=== PATIENT | female | born 1970 | race Caucasian/White ===

== ENCOUNTER 2016-09-19 08:48 | Outpatient (CLI) | payer OTHER | END 2016-09-19 08:49 | disposition home or self-care (01) | DX: Z00.00 Encounter for general adult medical examination without abnormal findings (principal) ==

== ENCOUNTER 2016-09-23 10:30 | Outpatient (CLI) | payer OTHER | END 2016-09-23 10:31 | disposition home or self-care (01) | DX: N76.0 Acute vaginitis (principal) ==

== ENCOUNTER 2016-09-23 10:45 | Outpatient (CLI) | payer OTHER | END 2016-09-23 10:46 | disposition home or self-care (01) | DX: Z12.31 Encounter for screening mammogram for malignant neoplasm of breast (principal) ==

== ENCOUNTER 2017-12-29 11:28 | Outpatient (CLI) | payer OTHER ==
--- NOTE | 2018-01-01 13:53 | Mammography Report ---
DIGITAL SCREENING MAMMOGRAM: 12/29/2017 CLINICAL INDICATION: A 47-year-old nulliparous patient for screening. COMPARISON: 08/2016, 04/2015, 11/2013, 09/2012, 08/2011, 08/2010. TECHNIQUE: Routine CC and MLO projections were obtained of the breasts. FINDINGS: The breasts again demonstrate heterogeneously dense fibroglandular parenchyma bilaterally. A few punctate, typically benign calcifications are present. No suspicious masses, clustered microcalcifications, or regions of architectural distortion are identified. IMPRESSION: BENIGN FINDINGS. RECOMMENDATION: Routine annual screening unless otherwise clinically indicated. BI-RADS CATEGORY 2 - BENIGN FINDINGS. STANDARD QUALIFYING STATEMENTS: 1. This examination was reviewed with the aid of Computer-Aided Detection (CAD). 2. A negative or benign imaging report should not delay biopsy if clinically suspicious findings are present. Consider surgical consultation if warranted. More than 5% of cancers are not identified by imaging. 3. Dense breasts may obscure an underlying neoplasm. TD: 01/01/2018 13:52
== END 2017-12-29 11:29 | disposition home or self-care (01) ==
LOC: DI.N 11:28
PROVIDERS: ATTEND Physician Assistant Medical
DX: Z12.31 Encounter for screening mammogram for malignant neoplasm of breast (principal)
CPT/HCPCS: 77067

== ENCOUNTER 2019-03-06 08:31 | Outpatient (CLI) | payer OTHER ==
[2019-03-06 10:15] LABS: BASOPHILS % (AUTO) 0.5 %; EOSINOPHILS # (AUTO) 0.1 10^3/uL (0.0-0.7); EOSINOPHILS % (AUTO) 2.5 %; HGB - HEMOGLOBIN 13.5 g/dL (12.0-16.0); LYMPHOCYTES # (AUTO) 1.2 10^3/uL (1.5-3.5); LYMPHOCYTES % (AUTO) 28.6 %; MEAN CORPUSCULAR HEMOGLOBIN 31.5 pg (27.0-31.0); MEAN CORPUSCULAR HGB CONC 31.8 g/dL (32.0-36.0); MEAN CORPUSCULAR VOLUME 99.1 fL (81.0-99.0); MEAN PLATELET VOLUME 11.2 fL (7.9-10.8); MONOCYTES # (AUTO) 0.5 10^3/uL (0.0-1.0); MONOCYTES % (AUTO) 10.8 %; NEUTROPHILS # (AUTO) 2.5 10^3/uL (1.5-6.6); NEUTROPHILS % (AUTO) 57.4 %; PLT - PLATELET COUNT 142 10^3/uL (130-450); RED BLOOD COUNT 4.28 10^6/uL (4.20-5.40); RED CELL DISTRIBUTION WIDTH 12.3 % (12.0-15.0); WHITE BLOOD COUNT 4.3 x10^3/uL (4.8-10.8)
[2019-03-06 11:18] LABS: ALBUMIN 4.6 g/dL (3.2-5.5); ALBUMIN/GLOBULIN RATIO 1.3 (1.0-2.2); ALKALINE PHOSPHATASE 45 IU/L (42-121); ALT ALANINE AMINOTRANSFERASE 28 IU/L (10-60); AST ASPARTATE AMINOTRANSFERASE 30 IU/L (10-42); BILIRUBIN,TOTAL 1.4 mg/dL (0.2-1.0); BUN - BLOOD UREA NITROGEN 17 mg/dL (6-20); CALCIUM 9.5 mg/dL (8.5-10.3); CARBON DIOXIDE - CO2 28 mmol/L (21-32); CHLORIDE 100 mmol/L (101-111); CHOL/HDL RATIO 2.5 (<4.4); CHOLESTEROL 201 mg/dL; CREATININE 0.6 mg/dL (0.4-1.0); GFR - MDRD 106 (>89); GLUCOSE 91 mg/dL (70-100); HDL CHOLESTEROL 80 mg/dL; SODIUM 139 mmol/L (135-145); TOTAL PROTEIN 8.2 g/dL (6.7-8.2)
== END 2019-03-06 08:32 | disposition home or self-care (01) ==
LOC: LAB.S 08:31
PROVIDERS: ATTEND Physician Assistant Medical
DX: Z00.00 Encounter for general adult medical examination without abnormal findings (principal)
CPT/HCPCS: 36415; 80053; 80061; 83721; 84443; 85025

== ENCOUNTER 2019-03-22 14:41 | Outpatient (CLI) | payer OTHER ==
--- NOTE | 2019-03-25 08:12 | Mammography Report ---
Reason: SCREENING MAMMO Procedure Date: 03/22/2019 Accession Number: [id number] / [id number] Procedure: JOE - Screening Mammo w/Hasmukh CPT Code: FULL RESULT: EXAM: Screening Mammo w/Hasmukh DATE: 03/22/2019 3:31 PM CLINICAL HISTORY: Screening encounter. History of nulliparity. TECHNIQUE: (B) - Bilateral CC and MLO views were obtained. COMPARISON: 12/29/2017 through 11/26/2013. PARENCHYMAL PATTERN: (A) - The breast(s) demonstrate(s) scattered fibroglandular densities. FINDINGS: There are no suspicious masses, calcifications, or areas of distortion. IMPRESSION: Negative examination. BI-RADS category 1. RECOMMENDATION: (ANNUAL) - Recommend routine annual screening mammography. BI-RADS CATEGORY: (1) - Negative. STANDARD QUALIFYING STATEMENTS: 1. This examination was not reviewed with the aid of Computer-Aided Detection (CAD). 2. A negative or benign imaging report should not preclude biopsy if clinically suspicious findings are present. 3. Dense breasts may obscure an underlying neoplasm. 4. This examination was reviewed with the aid of 3D breast imaging (tomosynthesis).
== END 2019-03-22 14:42 | disposition home or self-care (01) ==
LOC: DI 14:41
DX: Z12.31 Encounter for screening mammogram for malignant neoplasm of breast (principal)
CPT/HCPCS: 77063; 77067

== ENCOUNTER 2020-11-27 08:00 | Outpatient (CLI) | payer OTHER ==
[2020-11-27 19:05] LABS: ALBUMIN 4.9 g/dL (3.2-5.5); ALBUMIN/GLOBULIN RATIO 1.5 (1.0-2.2); ALKALINE PHOSPHATASE 36 IU/L (42-121); ALT ALANINE AMINOTRANSFERASE 25 IU/L (10-60); AST ASPARTATE AMINOTRANSFERASE 26 IU/L (10-42); BILIRUBIN,TOTAL 1.5 mg/dL (0.2-1.0); BUN - BLOOD UREA NITROGEN 18 mg/dL (6-20); CALCIUM 9.9 mg/dL (8.5-10.3); CARBON DIOXIDE - CO2 29 mmol/L (21-32); CHLORIDE 101 mmol/L (101-111); CHOL/HDL RATIO 2.2 (<4.4); CHOLESTEROL 228 mg/dL; CREATININE 0.8 mg/dL (0.4-1.0); GFR - MDRD 75 (>89); GLUCOSE 88 mg/dL (70-100); HDL CHOLESTEROL 102 mg/dL; LDL CHOLESTEROL,CALCULATED 113 mg/dL; LDL/HDL RATIO 1.1 (<4.4); SODIUM 139 mmol/L (135-145); TOTAL PROTEIN 8.2 g/dL (6.7-8.2); TRIGLYCERIDES 63 mg/dL; VLDL CHOLESTEROL 13 mg/dL
[2020-11-27 19:16] LABS: THYROID STIMULATING HORMONE 1.75 uIU/mL (0.34-5.60)
[2020-11-27 19:44] LABS: FOLLICLE STIMULATING HORMONE 46.85 mIU/mL
== END 2020-11-27 23:59 | disposition home or self-care (01) ==
LOC: LAB.WCP 08:00
PROVIDERS: ATTEND Physician Assistant Medical
DX: Z00.00 Encounter for general adult medical examination without abnormal findings (principal); K58.9 Irritable bowel syndrome, unspecified; N95.9 Unspecified menopausal and perimenopausal disorder; A60.00 Herpesviral infection of urogenital system, unspecified; R42 Dizziness and giddiness
CPT/HCPCS: 36415; 80053; 80061; 83001; 83721; 84443

== ENCOUNTER 2021-01-01 14:04 | Outpatient (CLI) | payer OTHER ==
--- NOTE | 2021-01-04 12:57 | Mammography Report ---
BILATERAL DIGITAL SCREENING MAMMOGRAM 3D/2D: 01/01/2021 CLINICAL: Routine screening. Comparison is made to exams dated: 03/22/2019 mammogram, 12/29/2017 mammogram, 09/23/2016 mammogram, 04/28 mammogram, and 11/26/2013 mammogram - [facility]. There are scattered fibrogl andular elements in both breasts. No significant masses, calcifications, or other findings are seen in either breast. There has been no significant interval change. IMPRESSION: NEGATIVE There is no mammographic evidence of malignancy. A 1 year screening mammogram is recommended. This exam was interpreted at Station ID: [id number]. NOTE: For mammograms, a report in lay terms will be sent to the patient. Approximately 15% of breast malignancies will not be visualized mammographically. In the management of a palpable breast mass, a negative mammogram must not discourage biopsy of a clinically suspicious lesion. Electronically Signed By: Derek Regan M.D., jr/barrie:01/01/2021 15:21:53 ACR BI-RADS Category 1: Negative 3341F PARENCHYMAL PATTERN: (A) - The breast(s) demonstrate(s) scattered fibroglandular densities. BI-RADS CATEGORY: (1) - 1 RECOMMENDATION: (ANNUAL) - Recommend routine annual screening mammography. [id number] 1 year screening LATERALITY: (B)
== END 2021-01-01 14:05 | disposition home or self-care (01) ==
LOC: DI 14:04
PROVIDERS: ATTEND Physician Assistant Medical
DX: Z12.31 Encounter for screening mammogram for malignant neoplasm of breast (principal)

== ENCOUNTER 2021-07-03 09:08 | Emergency (ER) | payer OTHER ==
[2021-07-03] MEDS ORDERED: ONDANSETRON 4 MG/2 ML VIAL IVP STA ×2 (09:24→09:48)
[2021-07-03] MEDS ORDERED: HYDROmorphone 1 MG/ML CARPUJECT IVP STA (09:24)
--- NOTE | 2021-07-03 09:26 | ED Physician Documentation ---
PD HPI LOWER EXT INJURY - Stated complaint Stated Complaint: RT ANKLE INJURY - Chief complaint Chief Complaint: Trauma Ext - History obtained from History obtained from: Patient - History of Present Illness PD HPI LOW EXT INJURY LOCATION: Right, Ankle Type of injury: Fall, Twist Where injury occurred: Park Timing - onset: Today Timing - duration: Minutes Timing - details: Abrupt onset, Still present Improved by: Rest, Ice, Immobilization Worsened by: Moving, Palpating Associated symptoms: Swelling. No: Weakness, Numbness Contributing factors: No: Anticoagulated Similar symptoms before: Has not had sx before Recently seen: Not recently seen - Additional information Additional information: 50-year-old female went to go [place] a walk on the beach this morning and on the way down to the beach she twisted her ankle, broke it, and dislocated it. She had a friend who was with her who was able to help her back to the car and she has been brought to the emergency department for evaluation. Her foot is on sideways. She is in a lot of pain. She has no specific past medical history. She has not any medications with the exception of some Valtrex. She has allergy to sulfa. She has not been recently ill. Review of Systems Constitutional: denies: Fever Eyes: denies: Decreased vision Ears: denies: Ear pain Nose: denies: Congestion Respiratory: denies: Cough GI: denies: Vomiting Musculoskeletal: reports: Extremity pain, Joint pain, Extremity swelling, Joint swelling. denies: Neck pain Neurologic: denies: Generalized weakness, Focal weakness, Numbness PD PAST MEDICAL HISTORY - Present Medications Home Medications: Ambulatory Orders Medication Instructions Recorded Confirmed HYDROcod/ACETAM 5/325 [Kensett 5/325] 1 - 2 tablet PO Q6H PRN #14 tablet 07/03/21 - Allergies Allergies/Adverse Reactions: Allergies Allergy/AdvReac Type Severity Reaction Status Date / Time Sulfa (Sulfonamide Allergy Hives Verified 07/03/21 09:16 Antibiotics) PD ED PE NORMAL - General General: Alert and oriented X 3, Well developed/nourished, Other (appears to be in pain. ) - HEENT HEENT: Atraumatic, PERRL, EOMI - Neck Neck: Supple, no meningeal sign - Respiratory Respiratory: No respiratory distress - Derm Derm: Normal color, Warm and dry, No rash - Extremities Extremities: Other (Swelling tenderness and fracture defomity to the right ankle. ) - Neuro Neuro: Alert and oriented X 3, chorus master 2-12 intact, No motor deficit, No sensory deficit, Normal speech Eye Opening: Spontaneous Motor: Obeys Commands Verbal: Oriented GCS Score: 15 - Psych Psych: Normal mood, Normal affect Results - Vitals Vitals: Vital Signs - 24 hr 07/03/21 09:14 Temperature 35.8 C L Heart Rate 69 Respiratory 16 Rate Blood Pressure 124/70 O2 Saturation 100 Oxygen O2 Source Room air - Rads (name of study) ankle Radiology: Prelim report reviewed (Impression: Moderately displaced comminuted fracture of the distal fibula, with widening of the ankle mortise. Intra- articular fracture fragments are seen.), EMP read indepedently, See rad report Procedures - Splint (location) right ankle Splint applied by: Tech Type of splint: Fiberglass, Posterior, Stirrup Other: Patient tolerated well, No complications, Neurovascular intact, Good alignment, Crutches provided PD MEDICAL DECISION MAKING - ED course Complexity details: reviewed results, re-evaluated patient, considered differential, d/w patient ED course: 50-year-old female with a fall on the beach has twisted and fractured her ankle she has a Displaced distal fibular fracture with some widening of the mortise. She is placed into a posterior and stirrup splint and onto crutches. She will follow up with orthopedics. Departure - Departure Disposition: 01 Home, Self Care Clinical Impression: Ankle fracture, right Qualifiers: Encounter type: initial encounter Fracture type: closed Qualified Code(s): S82.891A - Other fracture of right lower leg, initial encounter for closed fracture Condition: Stable Instructions: ED Fx Ankle Lateral Malleolus Follow-Up: Zuly Bingham PA-C [Primary Care Provider] - Chet Reina MD [Provider Admit Priv/Credential] - Prescriptions: HYDROcod/ACETAM 5/325 [Kensett 5/325] 1 - 2 tablet PO Q6H PRN #14 tablet PRN Reason: Pain Comments: Maribeth, today you have a fracture of your ankle and there is some "widening of the mortise". This simply means the ankle joint is unstable and you will likely need an operation to fix this. Follow-up with the orthopedic doctor this week.
[2021-07-03] MEDS ORDERED: HYDROcod/ACETAM 5/325 MG TABLET PO STA (09:38)
[2021-07-03] MEDS ORDERED: MORPHINE 2 MG/ML CARPUJECT IVP STA (09:48)
--- NOTE | 2021-07-03 09:53 | XRAY Report ---
PROCEDURE: Ankle 3 View RT INDICATIONS: fall fx dislocation TECHNIQUE: 3 views of the ankle were acquired. COMPARISON: None FINDINGS: Bones: There is a moderately displaced, mildly comminuted fracture of the distal lateral malleolus, s een at and below the level of the syndesmosis. If you've comminuted intra-articular fragments can be seen. The syndesmosis does not appear widened. There is widening of ankle mortise. The talar dome de monstrates an unremarkable appearance. Soft tissues: Soft tissue swelling is seen. IMPRESSION: Moderately displaced comminuted fracture of the distal fibula, with widening of ankle mo rtise. Intra-articular fracture fragments are seen. Reviewed by: Clinton Dubon MD on 07/03/2021 8:52 AM MIRIAM Approved by: Clinton Dubon MD on 07/03/2021 8:52 AM MIRIAM Station ID: [id number]
[2021-07-03 11:08] VITALS: BP 85/65
== END 2021-07-03 11:35 | disposition home or self-care (01) ==
LOC: ED 09:08
DX: S82.831A Other fracture of upper and lower end of right fibula, initial encounter for closed fracture (principal); X50.1XXA Overexertion from prolonged static or awkward postures, initial encounter; Y93.01 Activity, walking, marching and hiking; Y92.832 Beach as the place of occurrence of the external cause; Z88.2 Allergy status to sulfonamides
CPT/HCPCS: 29515; 99283

== ENCOUNTER 2021-07-08 09:59 | Day surgery (SDC) | payer OTHER ==
[~2021-07-08 09:59] MED LIST: ACETAMINOPHEN 1,000 MG/100 ML 100 ML IV ONE; CEFAZOLIN SODIUM IN 0.9 % NACL 2 GM/100 ML BAG IV ONE; CELECOXIB 100 MG CAPSULE PO ONE
[2021-07-08] MEDS ORDERED: oxyCODONE 5 MG TABLET PO PRN (10:23)
[2021-07-08] MEDS ORDERED: KETOROLAC 15 MG/ML VIAL IVP STA (10:23)
[2021-07-08] MEDS ORDERED: MIDAZOLAM 2 MG/2 ML VIAL ONE (10:31)
[2021-07-08] MEDS ORDERED: fentaNYL 100 MCG/2 ML VIAL ONE ×2 (10:31→12:34)
[2021-07-08] MEDS ORDERED: LIDOCAINE-MPF 2% 5 ML VIAL ONE (10:31)
[2021-07-08] MEDS ORDERED: DEXAMETHASONE 4 MG/ML VIAL ONE (10:31)
[2021-07-08] MEDS ORDERED: ONDANSETRON 4 MG/2 ML VIAL ONE (10:36)
[2021-07-08] MEDS ORDERED: LACTATED RINGERS 1,000 ML IV ONE ×2 (10:46→13:35)
--- NOTE | 2021-07-08 10:47 | ANESTHESIA ---
Pre-Anesthesia VS, & Labs - Diagnosis right ankle fracture - Procedure ORIF right ankle fracture Vital Signs: Temp Pulse Resp BP Pulse Ox 36.8 C 77 16 130/80 97 07/08/21 10:16 07/08/21 10:16 07/08/21 10:16 07/08/21 10:16 07/08/21 10:16 Height: 5 ft 6 in Weight (kg): 75 kg Body Mass Index: 26.6 BMI Classification: Overweight - NPO >8 hours - Is Patient ?: Waiver signed Home Medications and Allergies Active Medications Oxycodone HCl (Oxycodone 5 Mg Tablet) 5 mg PO Q4HR PRN PRN Reason: PAIN Allergies/Adverse Reactions: Allergies Allergy/AdvReac Type Severity Reaction Status Date / Time Sulfa (Sulfonamide Allergy increased Verified 07/07/21 09:42 Antibiotics) heart rate and BP Anes History & Medical History - Anesthetic History Anesthesia Complications: reports: Slow wake-up - Medical History Cardiovascular: reports: None Pulmonary: reports: None Gastrointestinal: reports: Other (IBS) Urinary: reports: None Neuro: reports: None Musculoskeletal: reports: None Endocrine/Autoimmune: reports: None Blood Disorders: reports: None Skin: reports: Rosacea, Other Smoking Status: Never smoker Psychosocial: reports: Alcohol (daily drink) History of Cancer?: No - Surgical History General: reports: Cholecystectomy Eyes Ears Nose Throat (EENT): reports: Other Dermatologic: reports: Skin cancer surgery Exam General: Alert, Oriented x3, Cooperative, No acute distress Dental: WNL Mouth Openin Fingerbreadth Neck Mobility: Normal Mallampati classification: II Thyromental Distance: 4-6 cm Respiratory: Lungs clear, Normal breath sounds, No respiratory distress, No accessory muscle use Cardiovascular: Regular rate, Normal S1, Normal S2, No murmurs Mental/Cognitive Status: Alert/Oriented X3, Normal for patient Plan Anesthesia Type: Total IV, Popliteal Block (right) Regional Block: Per Surgeon's request for Post Op pain control Consent for Procedure(s) Verified and Reviewed: Yes Code Status: Attempt Resuscitation ASA classification: 2-Mild systemic disease Is this case an emergency?: No
[2021-07-08] MEDS ORDERED: PROPOFOL 500 MG/50 ML 500 MG/50 ML VIAL ONE ×3 (11:14→12:30)
[2021-07-08] MEDS ORDERED: VANCOMYCIN 1 GM VIAL ONE (12:54)
--- NOTE | 2021-07-08 13:44 | OPERATIVE REPORT ---
Operative Report - General Procedure Date: 07/08/21 Planned Procedure: Open reduction internal fixation right ankle fracture Pre-Op Diagnosis: Displaced lateral malleolus fracture, ruptured deltoid ligament right ankle Procedure Performed: Open reduction internal fixation lateral malleolus and distal syndesmosis right ankle Post Op Diagnosis: Right ankle: Unstable ankle with lateral malleolus, posterior malleolus, sy - Procedure Note Primary Surgeon: Chet Reina MD Anesthesia Provider: Nai Oneil CRNA Anesthesia Technique: General ET tube, Regional block Estimated Blood Loss (mL): 10 Indications: This is a 50-year-old woman who twisted her right ankle in a fallSheIs a community ambulator. She had pain to her right ankle mostly laterally. She was immobilized in a splint and seen on a delayed basis in the orthopedic clinic. She had no fracture blisters. Skin intact. Swelling and bruising about right ankle was present. She was tender over the lateral aspect of the ankle and medial with unstable ankle mortise. Her routine radiographs suggested a displaced lateral malleolus fracture, Manriquez B. The medial malleolus was intact but the medial clear space was widened abnormally suggestive of complete deltoid ligament rupture. She had a unstable ankle mortise associated with the least a bimalleolar equivalent type of fracture and surgical stabilization was recommended and accepted by the patient. Findings: Intraoperative evaluation of the fracture showed a displaced lateral malleolus fracture, oblique fracture that began at the ankle mortise and extended proximally. The medial malleolus was intact. There was a very small posterior malleolus fracture, probably avulsion of tibial femoral ligament posteriorly. The syndesmosis showed some disruption distally. The deltoid ligament was at least partially ruptured. Complications: None - Other Other Information/Narrative: The patient was brought to the operating room. She had been given a popliteal block. After satisfactory general anesthesia was obtained, patient was positioned supine. A pneumatic tourniquet was applied to the proximal right thigh. A large gel bump was placed beneath the right buttock to facilitate internal rotation of the right leg. The right leg was placed over a foam bolster. The right lower extremity was prepped and draped in a sterile manner in the usual fashion. A timeout procedure was performed by the entire operating room team and all were in agreement. The tourniquet had been applied but was not utilized during surgery. A longitudinal incision was made along the posterior border of the fibula. This was carried directly down to bone, protecting the peroneal tendons posteriorly. The fracture was exposed by subperiosteal dissection. The fracture hematoma was removed with curette and saline lavage. The fracture was temporarily reduced with a small bone clamp and a intramedullary K wire inserted from the tip of lateral malleolus. The C arm was used intermittently for imaging and had been covered with a sterile drape. The fracture appeared to align well. The Arthrex lateral hook plate was applied and temporarily secured with the all of pin. A screw was inserted through the oval hole within the plate. The screw was loosened, all of pin removed and the hooks or tines of the plate were impacted and then the screw tightened in the oval hole. A proximal cortical screw, 3.5 mm, nonlocking was inserted and the oval hole screw was removed. A cannulated drill was then used intramedullary from the tip of the lateral malleolus to across the fracture site. A solid 3.5 mm cortical screw was then inserted from tip of lateral malleolus, across the fracture site; this was a 60 mm screw and provided very good fixation. Additional screws were inserted proximally and locking screws distally. At least 6 cortices of fixation were obtained proximally and distally. The fracture stability was excellent. C arm image intensifier x-ray showed good alignment. An external rotation stress test was performed using the C arm and there is seem to be good stability. However when doing the cotton test with a bone clamp, there seemed to be some motion at the syndesmosis. Therefore, a 3.7 mm drill bit was used to make a path for a Arthrex syndesmosis fixation. This was placed just posterior to the plate. The tight rope was then inserted across 4 cortices, deployed and tensioned with the ankle in neutral dorsiflexion. This certainly added stability to the ankle mortise, stress test negative to ankle following this added fixation. The wound was thoroughly irrigated, a gram of vancomycin powder was placed over the plate, soft tissue was closed with 2 oh strata fix suture. The skin was closed with 3 oh strata fix subcuticular suture. Dermabond was applied to the skin and then a silver impregnated dressing after the Dermabond had dried. A well-padded Easton Ruiz dressing was applied, short leg with padded fiberglass splint to hold the ankle in neutral dorsiflexion. She received 2 g of Ancef intravenously and tolerated the procedure well.
[2021-07-08] MEDS ORDERED: NALOXONE 0.4 MG/ML VIAL IVP PRN (13:49)
[2021-07-08] MEDS ORDERED: ATROPINE ABBOJECT 1 MG/10 ML SYRINGE IVP PRN (13:49)
[2021-07-08] MEDS ORDERED: MORPHINE 2 MG/ML CARPUJECT IVP PRN (13:49)
[2021-07-08] MEDS ORDERED: HYDROmorphone 0.5 MG/0.5 ML SYRINGE IVP PRN (13:49)
[2021-07-08] MEDS ORDERED: fentaNYL 100 MCG/2 ML VIAL IVP PRN (13:49)
[2021-07-08] MEDS ORDERED: ONDANSETRON 4 MG/2 ML VIAL IVP PRN (13:49)
--- NOTE | 2021-07-08 13:57 | ANESTHESIA POST OP EVALUATION ---
Anesthesia Post Eval - Post Anesthesia Eval Vitals: Last Vital Signs Temp 36.9 C 07/08/21 13:53 Pulse 73 07/08/21 13:53 Resp 17 07/08/21 13:53 BP 105/64 07/08/21 13:53 Pulse Ox 95 07/08/21 13:53 CV Function Including HR & BP: Stable Pain Control: Satisfactory Nausea & Vomiting: Negative Mental Status: Baseline Respiratory Status: Airway Patent Hydration Status: Satisfactory Anesthesia Complications: None
[2021-07-08] MEDS ORDERED: LACTATED RINGERS 1,000 ML IV SCH (14:00)
[2021-07-08] MEDS ORDERED: KETOROLAC 15 MG/ML VIAL ONE (14:05)
[2021-07-08] MEDS ORDERED: oxyCODONE 5 MG TABLET ONE (14:11)
[2021-07-08 14:24] VITALS: BP 110/67
--- NOTE | 2021-07-08 15:32 | XRAY Report ---
PROCEDURE: OR C-Arm Procedure INDICATIONS: RIGHT ANKLE ORIF TECHNIQUE: 3 intraoperative fluoroscopic images of right ankle were obtained. COMPARISON: Right ankle radiograph dated 07/03/2021. FINDINGS: Intraoperative fluoroscopic images of right ankle shows internal fixation of distal fibular shaft/lat eral malleolus and distal tibiofibular syndesmosis. Ankle alignment is anatomic. Total fluoroscopy time is 14 seconds. IMPRESSION: Fluoroscopy guidance was provided intraoperatively for ORIF of right ankle joint. Reviewed by: Shorty Scott MD on 07/08/2021 3:31 PM PST Approved by: Shorty Scott MD on 07/08/2021 3:31 PM PST Station ID: [id number]
== END 2021-07-08 10:00 | disposition home or self-care (01) ==
LOC: SDS 09:59
PROVIDERS: ATTEND Orthopaedic Surgery
DX: S82.841A Displaced bimalleolar fracture of right lower leg, initial encounter for closed fracture (principal); S93.421A Sprain of deltoid ligament of right ankle, initial encounter
CPT/HCPCS: 27814; 27829; A9270; C1713; J0131; J0690; J3370; J7120

== ENCOUNTER 2021-08-17 10:45 | Outpatient (CLI) | payer OTHER ==
--- NOTE | 2021-08-17 17:32 | XRAY Report ---
PROCEDURE: Ankle 3 View RT INDICATIONS: DISPLACED BIMALLEOLAR FX OF R LOWER LEG TECHNIQUE: 3 views of the ankle were acquired. COMPARISON: X-ray of the right ankle, 07/03/2021. FINDINGS: Bones: Open reduction and internal fixation of distal fibular fracture. There is also internal fixat ion/stabilization of distal tibiofibular syndesmosis. Ankle mortise is normally aligned. No suspicio us bony lesions. Soft tissues: No tibiotalar joint effusion. Achilles tendon appears normal. IMPRESSION: 1. ORIF of lateral malleolar fracture. 2. Stabilization of distal tibiofibular syndesmosis. 3. Normal alignment with ankle mortise. Reviewed by: Janet Washburn MD on 08/17/2021 5:30 PM PST Approved by: Janet Washburn MD on 08/17/2021 5:30 PM PST Station ID: [id number]
== END 2021-08-17 23:59 | disposition home or self-care (01) ==
LOC: DI.N 10:45
PROVIDERS: ATTEND Orthopaedic Surgery
DX: S82.61XD Displaced fracture of lateral malleolus of right fibula, subsequent encounter for closed fracture with routine healing (principal)

== ENCOUNTER 2021-12-03 08:13 | Outpatient (CLI) | payer MEDICAID ==
[2021-12-03 08:28] LABS: BASOPHILS % (AUTO) 0.5 %; EOSINOPHILS # (AUTO) 0.1 10^3/uL (0.0-0.7); EOSINOPHILS % (AUTO) 3.1 %; HCT - HEMATOCRIT 40.5 % (37.0-47.0); HGB - HEMOGLOBIN 13.4 g/dL (12.0-16.0); LYMPHOCYTES # (AUTO) 1.1 10^3/uL (1.5-3.5); LYMPHOCYTES % (AUTO) 26.3 %; MEAN CORPUSCULAR HEMOGLOBIN 32.9 pg (27.0-31.0); MEAN CORPUSCULAR HGB CONC 33.1 g/dL (32.0-36.0); MEAN CORPUSCULAR VOLUME 99.5 fL (81.0-99.0); MEAN PLATELET VOLUME 9.5 fL (7.9-10.8); MONOCYTES # (AUTO) 0.4 10^3/uL (0.0-1.0); MONOCYTES % (AUTO) 9.8 %; NEUTROPHILS # (AUTO) 2.5 10^3/uL (1.5-6.6); NEUTROPHILS % (AUTO) 60.1 %; PLT - PLATELET COUNT 192 10^3/uL (130-450); RED BLOOD COUNT 4.07 10^6/uL (4.20-5.40); RED CELL DISTRIBUTION WIDTH 12.4 % (12.0-15.0); WHITE BLOOD COUNT 4.2 x10^3/uL (4.8-10.8)
[2021-12-03 08:46] LABS: ALBUMIN 4.5 g/dL (3.2-5.5); ALBUMIN/GLOBULIN RATIO 1.4 (1.0-2.2); ALKALINE PHOSPHATASE 44 IU/L (42-121); ALT ALANINE AMINOTRANSFERASE 15 IU/L (10-60); AST ASPARTATE AMINOTRANSFERASE 18 IU/L (10-42); BILIRUBIN,TOTAL 1.2 mg/dL (0.2-1.0); BUN - BLOOD UREA NITROGEN 13 mg/dL (6-20); CARBON DIOXIDE - CO2 29 mmol/L (21-32); CHLORIDE 99 mmol/L (101-111); CHOL/HDL RATIO 2.7 (<4.4); CHOLESTEROL 226 mg/dL; CREATININE 0.6 mg/dL (0.4-1.0); GFR - MDRD 105 (>89); GLUCOSE 95 mg/dL (70-100); HDL CHOLESTEROL 84 mg/dL; LDL CHOLESTEROL,CALCULATED 124 mg/dL; LDL/HDL RATIO 1.5 (<4.4); SODIUM 137 mmol/L (135-145); TOTAL PROTEIN 7.7 g/dL (6.7-8.2); TRIGLYCERIDES 92 mg/dL; VLDL CHOLESTEROL 18 mg/dL
[2021-12-03 08:57] LABS: THYROID STIMULATING HORMONE 2.2 uIU/mL (0.34-5.60)
[2021-12-03 09:03] LABS: FERRITIN 65.7 ng/mL (11.0-306.8)
== END 2021-12-03 08:14 | disposition home or self-care (01) ==
LOC: LAB 08:13
PROVIDERS: ATTEND Physician Assistant Medical
DX: Z00.00 Encounter for general adult medical examination without abnormal findings (principal); R53.83 Other fatigue
CPT/HCPCS: 36415; 80053; 80061; 82306; 82607; 82728; 83721; 84443; 85025

== ENCOUNTER 2021-12-15 07:42 | Outpatient (CLI) | payer MEDICAID ==
--- NOTE | 2021-12-15 16:24 | Ultrasound Report ---
PROCEDURE: Pelvic w/Transvaginal INDICATIONS: POOST MENOPAUSAL MENORRHAGIA TECHNIQUE: Real-time scanning was performed of the pelvic organs, with image documentation. Additional endovagi nal scanning was necessary due to incomplete visualization of the adnexal and endometrial structures by transabdominal scanning. COMPARISON: None. FINDINGS: Limited scanning through the kidneys shows no hydronephrosis. No pathologic free abdominal or pelvic fluid. Uterus: Uterus is normal in size at 7.2 x 3.5 x 4.2 cm. Coarsely echogenic liver parenchymal echotex ture is seen. 1.2 x 0.6 x 0.8 cm intramural fibroid in posterior mid myometrium is seen. The endometr ium measures 3.7 mm in combined thickness. No discrete endometrial mass or fluid. Nabothian cysts ar e noted in endocervical canal. Ovaries: Bilat. ovaries are not visualized on this study. No gross adnexal mass is seen. Other: No free pelvic fluid. IMPRESSION: 1. Coarsely heterogeneous myometrial echotexture with a 1.2 cm focal fibroid as above. 2. No endometrial mass or fluid. 3. Bilateral ovaries are not visualized. No gross adnexal mass or pelvic free fluid. Reviewed by: Shorty Scott MD on 12/15/2021 4:23 PM PDT Approved by: Shorty Scott MD on 12/15/2021 4:23 PM PDT Station ID: [id number]
== END 2021-12-15 07:43 | disposition home or self-care (01) ==
LOC: DI 07:42
PROVIDERS: ATTEND Physician Assistant Medical
DX: D25.1 Intramural leiomyoma of uterus (principal); N95.0 Postmenopausal bleeding

== ENCOUNTER 2022-10-14 07:45 | Outpatient (CLI) | payer MEDICAID ==
--- NOTE | 2022-10-14 12:16 | Mammography Report ---
BILATERAL DIGITAL SCREENING MAMMOGRAM 3D/2D: 10/14/2022 CLINICAL: Routine screening. Comparison is made to exams dated: 01/01/2021 mammogram, 03/22/2019 mammogram, 12/29/2017 mammogram, 09/23 mammogram, and 05/15/2015 mammogram - [facility]. There are scattered areas of fibroglandular density in both breasts (category b / 25%-50% glandular t issue). No significant masses, calcifications, or other findings are seen in either breast. There has been no significant interval change. IMPRESSION: NEGATIVE There is no mammographic evidence of malignancy. A 1 year screening mammogram is recommended. Based on the Tyrer Cuzick model (a risk assessment model) the patients lifetime risk is 9.8% and her 10 year risk is 2.7%. According to the ACR, ACS, and NCCN guidelines, an annual breast MRI exam jd g with mammogram is recommended if the patients lifetime risk is 20% or greater. This exam was interpreted at Station ID: [id number]. NOTE: For mammograms, a report in lay terms will be sent to the patient. Approximately 15% of breast malignancies will not be visualized mammographically. In the management of a palpable breast mass, a negative mammogram must not discourage biopsy of a clinically suspicious lesion. Electronically Signed By: Manjit calderón/barrie:10/14/2022 08:42:23 ACR BI-RADS Category 1: Negative 3341F PARENCHYMAL PATTERN: (A) - The breast(s) demonstrate(s) scattered fibroglandular densities. BI-RADS CATEGORY: (1) - 1 RECOMMENDATION: (ANNUAL) - Recommend routine annual screening mammography. [id number] 1 year screening LATERALITY: (B)
== END 2022-10-14 07:46 | disposition home or self-care (01) ==
LOC: DI 07:45
DX: Z12.31 Encounter for screening mammogram for malignant neoplasm of breast (principal)

== ENCOUNTER 2023-02-02 08:04 | Emergency (ER) | payer BC, MEDICAID ==
[2023-02-02 08:17] VITALS: BP 150/90
[2023-02-02] MEDS ORDERED: BUFFERED LIDOCAINE 10 ML SYRINGE SUBQ STA (08:22)
--- NOTE | 2023-02-02 08:48 | ED Physician Documentation ---
PD HPI UPPER EXT INJURY - Stated complaint Stated Complaint: LT FINGER LAC - Chief complaint Chief Complaint: Laceration - History obtained from History obtained from: Patient - History of Present Illness Pain level max: 4 Pain level now: 2 Improved by: Rest Worsened by: Moving, Palpating Contributing factors: Work related. 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 She is right-handed. Tetanus shot up-to-date. PD PAST MEDICAL HISTORY - Past Medical History Cardiovascular: None Respiratory: None Neuro: None Endocrine/Autoimmune: None GI: Other : None HEENT: Chronic vision loss Psych: None Musculoskeletal: None Derm: Rosacea, Other - Past Surgical History General: Cholecystectomy Ortho: Other (ankle orif) HEENT: Other Derm: Skin cancer surgery - Present Medications Home Medications: Ambulatory Orders Medication Instructions Recorded Confirmed Cholecalciferol (Vitamin D3) 1 tab PO DAILY 04/18/22 04/19/22 [Vitamin D3] Fexofenadine [Yoko] 180 mg PO DAILY 04/18/22 04/18/22 Fluticasone [Flonase] 1 spray IH DAILY 04/18/22 04/19/22 valACYclovir [Valtrex] 1 tab PO DAILY 04/18/22 04/18/22 - Allergies Allergies/Adverse Reactions: Allergies Allergy/AdvReac Type Severity Reaction Status Date / Time Sulfa (Sulfonamide Allergy increased Verified 02/02/23 08:14 Antibiotics) heart rate and BP - Social History Smoking Status: Never smoker - Family History Family history: reports: Non contributory - Immunizations Immunizations are current?: Yes Immunizations: TDAP current <10years PD ED PE NORMAL - Vitals Vital signs reviewed: Yes - General General: Alert and oriented X 3, No acute distress - HEENT HEENT: Moist mucous membranes - Derm Derm: Warm and dry - Extremities Extremities: Other (L thumb 4cm linear laceration to the dorusm of the 1st MC. NVI. no tendon injury) - Neuro Neuro: Alert and oriented X 3 Results - Vitals Vitals: Vital Signs - 24 hr 02/02/23 08:11 Temperature 37.1 C Heart Rate 75 Respiratory 20 Rate Blood Pressure 150/90 H O2 Saturation 96 Oxygen O2 Source Room air Procedures - Laceration (location) L thumb Length in cm: 4 Wound type: Linear, Into subcut fat, Clean Neurovascular status: Sensory intact, Motor intact, Vascular intact Tendon involvement: Tendon intact Anesthesia: Lidocaine 1% Wound preparation: Irrigated copiously NS, Wound explored, To the base Skin layer closure: Nylon, Interrupted, Size #-0 - enter number (4), Sutures - enter # (7) Other: Patient tolerated well, No complications, Neurovascular intact, Tetanus UTD PD Medical Decision Making - ED course Complexity details: considered differential, d/w patient ED course: 52-year-old female with a left thumb laceration. This was repaired. Tolerated well. Neurovascular intact. No tendon injury. Tetanus up-to-date. Warnings of infection and instructions on wound care given at bedside. Also counseled on how to minimize scarring. Patient counseled regarding signs and symptoms for which I believe and urgent re-evaluation would be necessary. Patient with good understanding of and agreement to plan and is comfortable going home at this time This document was made in part using voice recognition software. While efforts are made to proofread this document, sound alike and grammatical errors may occur. Departure - Departure Disposition: 01 Home, Self Care Clinical Impression: Finger laceration Qualifiers: Encounter type: initial encounter Finger: thumb Damage to nail status: without damage Foreign body presence: without foreign body Laterality: left Qualified Code(s): S61.012A - Laceration without foreign body of left thumb without damage to nail, initial encounter Condition: Good Instructions: ED Laceration Hand Follow-Up: Zuly Bingham PA-C [Primary Care Provider] - Comments: The stitches to be removed in approximately 10 days. Please follow-up with your doctor for removal. Please return if you notice redness, swelling or drainage from the wound. Keep the wound clean. Discharge Date/Time: 02/02/23 09:06
== END 2023-02-02 09:06 | disposition home or self-care (01) ==
LOC: ED 08:04
DX: S61.012A Laceration without foreign body of left thumb without damage to nail, initial encounter (principal); W26.0XXA Contact with knife, initial encounter; Y99.0 Civilian activity done for income or pay
CPT/HCPCS: 12002; 99282

== ENCOUNTER 2023-03-06 06:59 | Outpatient (CLI) | payer BC ==
[2023-03-06 07:34] LABS: ALBUMIN 4.2 g/dL (3.2-5.5); ALBUMIN/GLOBULIN RATIO 1.2 (1.0-2.2); ALKALINE PHOSPHATASE 49 IU/L (42-121); ALT ALANINE AMINOTRANSFERASE 26 IU/L (10-60); AST ASPARTATE AMINOTRANSFERASE 27 IU/L (10-42); BILIRUBIN,TOTAL 0.7 mg/dL (0.2-1.0); BUN - BLOOD UREA NITROGEN 26 mg/dL (6-20); CALCIUM 8.9 mg/dL (8.5-10.3); CARBON DIOXIDE - CO2 29 mmol/L (21-32); CHLORIDE 102 mmol/L (101-111); CHOL/HDL RATIO 2.3 (<4.4); CHOLESTEROL 221 mg/dL; CREATININE 0.8 mg/dL (0.4-1.0); GFR - MDRD 75 (>89); GLUCOSE 102 mg/dL (70-100); HDL CHOLESTEROL 95 mg/dL; LDL CHOLESTEROL,CALCULATED 117 mg/dL; LDL/HDL RATIO 1.2 (<4.4); POTASSIUM 4.1 mmol/L (3.5-5.0); SODIUM 137 mmol/L (135-145); TOTAL PROTEIN 7.7 g/dL (6.7-8.2); TRIGLYCERIDES 47 mg/dL; VLDL CHOLESTEROL 9 mg/dL
[2023-03-06 07:41] LABS: BASOPHILS % (AUTO) 0.6 %; EOSINOPHILS # (AUTO) 0.2 10^3/uL (0.0-0.7); EOSINOPHILS % (AUTO) 4.9 %; HCT - HEMATOCRIT 37.9 % (37.0-47.0); HGB - HEMOGLOBIN 12.7 g/dL (12.0-16.0); LYMPHOCYTES # (AUTO) 1.3 10^3/uL (1.5-3.5); LYMPHOCYTES % (AUTO) 26.6 %; MEAN CORPUSCULAR HEMOGLOBIN 32.6 pg (27.0-31.0); MEAN CORPUSCULAR HGB CONC 33.5 g/dL (32.0-36.0); MEAN CORPUSCULAR VOLUME 97.2 fL (81.0-99.0); MEAN PLATELET VOLUME 9.2 fL (7.9-10.8); MONOCYTES # (AUTO) 0.4 10^3/uL (0.0-1.0); MONOCYTES % (AUTO) 7.6 %; NEUTROPHILS # (AUTO) 2.9 10^3/uL (1.5-6.6); NEUTROPHILS % (AUTO) 60.1 %; PLT - PLATELET COUNT 201 10^3/uL (130-450); RED CELL DISTRIBUTION WIDTH 13.1 % (12.0-15.0); WHITE BLOOD COUNT 4.9 x10^3/uL (4.8-10.8)
[2023-03-06 07:46] LABS: THYROID STIMULATING HORMONE 4.19 uIU/mL (0.34-5.60)
== END 2023-03-06 07:00 | disposition home or self-care (01) ==
LOC: LAB 06:59
PROVIDERS: ATTEND Physician Assistant Medical
DX: Z00.00 Encounter for general adult medical examination without abnormal findings (principal); E55.9 Vitamin D deficiency, unspecified; R53.83 Other fatigue
CPT/HCPCS: 36415; 80053; 80061; 82306; 82607; 83721; 84443; 85025

== ENCOUNTER 2023-03-24 12:17 | Day surgery (SDC) | payer BC ==
[2023-03-24] MEDS ORDERED: LACTATED RINGERS 1,000 ML IV ONE ×2 (13:01→14:58)
[2023-03-24] MEDS ORDERED: PROPOFOL 500 MG/50 ML 500 MG/50 ML VIAL ONE (14:13)
--- NOTE | 2023-03-24 14:16 | ANESTHESIA ---
Pre-Anesthesia VS, & Labs - Diagnosis screening + hx of colon ca - Procedure colonoscopy Vital Signs: Temp Pulse Resp BP Pulse Ox O2 Flow Rate 36.2 C L 67 12 124/72 97 03/24/23 12:31 03/24/23 12:31 03/24/23 12:31 03/24/23 12:31 03/24/23 12:31 Height: 5 ft 6 in Weight (kg): 78 kg Body Mass Index: 27.7 BMI Classification: Overweight - NPO >8 hours - Is Patient ?: No - Lab Results Lab results reviewed: Yes Home Medications and Allergies Home Medications: Ambulatory Orders Cyanocobalamin (Vitamin B-12) [Vitamin B12] 5,000 mcg PO DAILY 03/23/23 Multivitamin 1 tab ORAL DAILY 03/23/23 Cholecalciferol (Vitamin D3) [Vitamin D3] 1 tab PO DAILY 04/18/22 Fluticasone [Flonase] 1 spray IH DAILY 04/18/22 valACYclovir [Valtrex] 1 tab PO DAILY 04/18/22 Cyanocobalamin (Vitamin B-12) [Vitamin B12] 5,000 mcg PO DAILY 03/23/23 Multivitamin 1 tab ORAL DAILY 03/23/23 Allergies/Adverse Reactions: Allergies Allergy/AdvReac Type Severity Reaction Status Date / Time Sulfa (Sulfonamide Allergy increased Verified 03/24/23 12:38 Antibiotics) heart rate and BP Anes History & Medical History - Anesthetic History Anesthesia Complications: reports: No previous complications Family history of Anesthesia Complications: Denies Family history of Malignant Hyperthermia: Denies - Medical History Cardiovascular: reports: None Pulmonary: reports: None Gastrointestinal: reports: Other Urinary: reports: None Neuro: reports: None Musculoskeletal: reports: None Endocrine/Autoimmune: reports: None Blood Disorders: reports: None Skin: reports: Rosacea, Other Smoking Status: Never smoker - Surgical History General: reports: Cholecystectomy Eyes Ears Nose Throat (EENT): reports: Other Orthopedic: reports: Other (ankle orif) Dermatologic: reports: Skin cancer surgery Exam General: Alert, Oriented x3, Cooperative Dental: WNL Mouth Openin Fingerbreadth Neck Mobility: Normal Mallampati classification: I Thyromental Distance: 4-6 cm Respiratory: Lungs clear Cardiovascular: Regular rate Plan Anesthesia Type: General, MAC Consent for Procedure(s) Verified and Reviewed: Yes Code Status: Attempt Resuscitation ASA classification: 2-Mild systemic disease Is this case an emergency?: No
[2023-03-24] MEDS ORDERED: SIMETHICONE 40 MG/0.6 ML 30 ML BOTTLE PO ONE (14:38)
[2023-03-24] MEDS ORDERED: PROPOFOL 200 MG/20 ML VIAL IVP ONE (14:50)
[2023-03-24 15:20] VITALS: BP 118/65
--- NOTE | 2023-03-24 15:26 | HISTORY & PHYSICAL EXAMINATION ---
Chief Complaint - Chief Complaint Chief Complaint: here for colononoscopy History of Present Illness - History Obtained From Records Reviewed: yes History obtained from: pt Exam Limitations: none - History of Present Illness HPI Comment/Other: stage one colon cancer and surgery 1 year ago. here for surviellance. no problems History - Past Medical History Cardiovascular: reports: None Respiratory: reports: None Neuro: reports: None Endocrine/Autoimmune: reports: None GI: reports: Other : reports: None HEENT: reports: Chronic vision loss Psych: reports: None Musculoskeletal: reports: None Derm: reports: Rosacea, Other MRSA Hx?: No - Past Surgical History General: reports: Cholecystectomy Ortho: reports: Other (ankle orif) HEENT: reports: Other Derm: reports: Skin cancer surgery Meds/Allgy - Home Medications Home Medications: Ambulatory Orders Medication Instructions Recorded Confirmed Cholecalciferol (Vitamin D3) 1 tab PO DAILY 04/18/22 03/23/23 [Vitamin D3] Fluticasone [Flonase] 1 spray IH DAILY 04/18/22 03/24/23 valACYclovir [Valtrex] 1 tab PO DAILY 04/18/22 03/24/23 Cyanocobalamin (Vitamin B-12) 5,000 mcg PO DAILY 03/23/23 03/23/23 [Vitamin B12] Multivitamin 1 tab ORAL DAILY 03/23/23 03/23/23 - Allergies Allergies/Adverse Reactions: Allergies Allergy/AdvReac Type Severity Reaction Status Date / Time Sulfa (Sulfonamide Allergy increased Verified 03/24/23 12:38 Antibiotics) heart rate and BP Review of Systems - Other Findings Other Findings: 10 pt ros as above otherwise unremarkable Exam - Vital Signs Vital Signs: Vital Signs x48h Temp Pulse Resp BP Pulse Ox 03/24/23 15:16 36.2 C L 67 14 118/65 98 03/24/23 15:03 36.0 C L 78 14 97/56 L 98 03/24/23 12:31 36.2 C L 67 12 124/72 97 - Physical Exam General Appearance: positive: No acute distress, Alert Eyes Bilateral: positive: PERRL, EOMI ENT: positive: No signs of dehydration Neck: positive: No JVD, Trachea midline Respiratory: positive: No respiratory distress Cardiovascular: positive: Regular rate & rhythm Abdomen: positive: No distention Neurologic/Psychiatric: positive: Oriented x3 Conclusion/Plan - Problem List (1) History of colon cancer Conclusion/Plan: plan colonoscopy - Lab Results Lab results reviewed: Yes
--- NOTE | 2023-03-28 13:52 | ANESTHESIA POST OP EVALUATION ---
Anesthesia Post Eval - Post Anesthesia Eval Vitals: Last Vital Signs Temp 36.2 C L 03/24/23 15:16 Pulse 67 03/24/23 15:16 Resp 14 03/24/23 15:16 BP 118/65 03/24/23 15:16 Pulse Ox 98 03/24/23 15:16 O2 Flow Rate CV Function Including HR & BP: Stable Pain Control: Satisfactory Nausea & Vomiting: Negative Mental Status: Baseline Respiratory Status: Airway Patent Hydration Status: Satisfactory Anesthesia Complications: None
== END 2023-03-24 12:18 | disposition home or self-care (01) ==
LOC: SDS 12:17
PROVIDERS: ATTEND Surgery
PROC: 0DBL8ZX Excision of Transverse Colon, Via Natural or Artificial Opening Endoscopic, Diagnostic (ICD-10-PCS; 2023-03-24)
PROC: 0DBP8ZX Excision of Rectum, Via Natural or Artificial Opening Endoscopic, Diagnostic (ICD-10-PCS; principal; 2023-03-24 13:30)
DX: Z12.11 Encounter for screening for malignant neoplasm of colon (principal); D12.3 Benign neoplasm of transverse colon; K62.1 Rectal polyp; K63.5 Polyp of colon; Z85.038 Personal history of other malignant neoplasm of large intestine
CPT/HCPCS: 45380; A9270; J7120

== ENCOUNTER 2024-04-02 12:21 | Outpatient (CLI) | payer BC ==
[2024-04-02 12:46] LABS: BASOPHILS % (AUTO) 0.5 %; EOSINOPHILS # (AUTO) 0.3 10^3/uL (0.0-0.7); EOSINOPHILS % (AUTO) 5.1 %; HCT - HEMATOCRIT 38.4 % (37.0-47.0); HGB - HEMOGLOBIN 12.5 g/dL (12.0-16.0); LYMPHOCYTES # (AUTO) 1.6 10^3/uL (1.5-3.5); LYMPHOCYTES % (AUTO) 28.3 %; MEAN CORPUSCULAR HEMOGLOBIN 31.9 pg (27.0-31.0); MEAN CORPUSCULAR HGB CONC 32.6 g/dL (32.0-36.0); MEAN PLATELET VOLUME 9.3 fL (7.9-10.8); MONOCYTES # (AUTO) 0.4 10^3/uL (0.0-1.0); MONOCYTES % (AUTO) 7.3 %; NEUTROPHILS # (AUTO) 3.2 10^3/uL (1.5-6.6); NEUTROPHILS % (AUTO) 58.4 %; PLT - PLATELET COUNT 211 10^3/uL (130-450); RED BLOOD COUNT 3.92 10^6/uL (4.20-5.40); RED CELL DISTRIBUTION WIDTH 13.1 % (12.0-15.0); WHITE BLOOD COUNT 5.5 x10^3/uL (4.8-10.8)
[2024-04-02 13:28] LABS: ALBUMIN 4.6 g/dL (3.2-5.5); ALBUMIN/GLOBULIN RATIO 1.6 (1.0-2.2); ALKALINE PHOSPHATASE 61 IU/L (42-121); ALT ALANINE AMINOTRANSFERASE 25 IU/L (10-60); AST ASPARTATE AMINOTRANSFERASE 23 IU/L (10-42); BILIRUBIN,TOTAL 0.9 mg/dL (0.2-1.0); BUN - BLOOD UREA NITROGEN 13 mg/dL (6-20); CALCIUM 9.8 mg/dL (8.5-10.3); CARBON DIOXIDE - CO2 31 mmol/L (21-32); CHLORIDE 102 mmol/L (101-111); CREATININE 0.7 mg/dL (0.6-1.3); CRP - C-REACTIVE PROTEIN < 0.5 mg/dL (<0.5); GFR - MDRD 87 (>89); GLUCOSE 134 mg/dL (74-104); POTASSIUM 3.7 mmol/L (3.5-4.5); SODIUM 138 mmol/L (135-145); TOTAL PROTEIN 7.4 g/dL (6.4-8.9)
--- NOTE | 2024-04-02 15:21 | XRAY Report ---
Cervical Spine 2-3V HISTORY: 53 years of age, HEADACHE TECHNIQUE: Cervical Spine 2-3V COMPARISON: None. FINDINGS/IMPRESSION: Mild anterolisthesis of C3 on C4. Mild retrolisthesis of C4 on C5. Vertebral body heights are well-ma intained. Multilevel, moderate degenerative disc disease of the cervical spine. No vertebral soft tis sues edema. No significant cervical facet arthropathy. Open mouth view is nondiagnostic. Reviewed by: Karol Head MD on 04/02/2024 3:19 PM PDT Approved by: Karol Head MD on 04/02/2024 3:19 PM PDT Station ID: [id number]
== END 2024-04-02 12:22 | disposition home or self-care (01) ==
LOC: LAB 12:21
PROVIDERS: ATTEND Physician Assistant Medical
DX: R51.9 Headache, unspecified (principal); M43.12 Spondylolisthesis, cervical region; M50.30 Other cervical disc degeneration, unspecified cervical region
CPT/HCPCS: 36415; 80053; 85025; 85651; 86140

== ENCOUNTER 2024-04-15 06:56 | Outpatient (CLI) | payer BC ==
[2024-04-15] MEDS ORDERED: GADOTERATE MEGLUMINE 10 MMOL/20 ML VIAL ONE (06:59)
--- NOTE | 2024-04-15 15:47 | MRI Report ---
PROCEDURE: Brain W/WO INDICATIONS: HEADACHE CONTRAST: Clariscan 16.8ml TECHNIQUE: Noncontrast axial T1 spin echo, axial T2 fast spin echo, sagittal and axial FLAIR, coronal T2 fast sp in echo, axial gradient echo, axial diffusion and ADC through the brain. After the administration of contrast, axial and coronal T1 spin echo with fat saturation through the brain. COMPARISON: None. FINDINGS: Image quality: Excellent. CSF spaces: Basal cisterns are patent. No extra-axial fluid collections. Ventricles are normal in size and shape. Brain: No midline shift. No intracranial bleeds or masses. No abnormal intracranial enhancement. There is cerebral volume loss for age. There is periventricular white matter chronic small vessel is chemic change. The brainstem appears normal. Diffusion-weighted images demonstrate no acute ischemi c insults. No chronic ischemic insults. Normal intravascular flow voids are present. Skull and face: Calvarial marrow is normal in signal. Orbits appear normal. Sinuses: Sinuses demonstrate minimal scattered sinus mucosal thickening. No fluid levels. IMPRESSION: 1. No acute intracranial process. Reviewed by: Marilee oBrden MD on 04/15/2024 3:46 PM PDT Approved by: Marilee Borden MD on 04/15/2024 3:46 PM PDT Station ID: [id number]
[2024-04-15] MEDS: GADOTERATE MEGLUMINE 10 MMOL/20 ML VIAL IVP ONE (17:46)
== END 2024-04-15 06:57 | disposition home or self-care (01) ==
LOC: DI 06:56
PROVIDERS: ATTEND Physician Assistant Medical
DX: R51.9 Headache, unspecified (principal)
CPT/HCPCS: 70553; A9575